=== PATIENT | female | born 1970 | race African-American/Black ===

== ENCOUNTER 2023-01-02 08:29 | Outpatient (AMB) | payer OTHER, SELFPAY ==
--- NOTE | 2023-01-02 08:37 | MHC.OFFVIS ---
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 Short he works in the [employer] office but changing to [employer]. She has a history of breast cancer around 2008 and underwent surgery/chemotherapy/radiation per documentation. Otherwise, no known cardiac issues. No history of any coronary disease, myocardial infarction or cardiomyopathy. She is extremely active with no limitations. Does not get chest pain or shortness of breath or any cardiac symptoms. No major comorbidities. [facility] Medical History (Updated 01/02/23 @ 08:50 by Saroj Wilkerson MD) Breast cancer Family History (Updated 01/02/23 @ 08:42 by Hyacinth Stapleton) Mother No problems noted. Father No problems noted. Social History (Updated 01/02/23 @ 08:42 by Hyacinth Stapleton) Alcohol intake: current Alcohol intake frequency: holidays/special occasions only Alcohol type: wine Review of Systems Const Denies chills, Denies daytime sleepiness, Denies fatigue, Denies fever(s), Denies frequent falls, Denies night sweats, Denies snoring, Denies weakness, Denies weight gain and Denies weight loss Eyes Denies loss of vision ENT Denies dizziness and Denies hearing loss Card Denies chest pain, Denies chest pain with activity, Denies syncope, Denies rapid heart rate, Denies edema, Denies claudication, Denies leg edema, Denies lightheadedness, Denies palpitations, Denies dyspnea, Denies dyspnea on exertion and Denies orthopnea Resp Denies cough, Denies excessive phlegm production, Denies dyspnea, Denies dyspnea on exertion, Denies snoring and Denies wheezing GI Denies abdominal pain, Denies hematochezia, Denies change in bowel habits, Denies change in stool character, Denies heartburn, Denies nausea and Denies vomiting Denies hematuria, Denies urinary frequency and Denies dysuria Musc Denies arthralgias, Denies muscle weakness, Denies numbness and Denies tingling Skin/Breast Denies nail changes and Denies rash Neuro Denies Abnormal speech present, Denies dizziness, Denies syncope, Denies frequent falls, Denies loss of vision, Denies memory loss, Denies numbness, Denies tingling and Denies weakness Psych Denies depression and Denies memory loss Endo Denies fatigue and Denies palpitations Aller/Immun Denies wheezing Physical Exam Vital Signs: Last Vital Signs Pulse 83 01/02/23 08:38 BP 110/74 01/02/23 08:38 BMI result Body Mass Index 30.5 Const General: comfortable and no acute distress Orientation/consciousness: patient oriented x3 HEENT Other: Unremarkable Head: Yes normal to inspection Neck Neck: Yes normal visual inspection Chest Chest palpation & inspection: normal inspection of the chest Resp Auscultation: clear to auscultation bilaterally Cardio Palpation: normal PMI Heart sounds: S1 normal heart sound present, S2 normal heart sound present, no gallops, no murmurs and no rubs GI Palpation (GI): Soft to palpation Back/Spine/Pelvis Other: unremarkable Skin General skin exam: no rashes or lesions noted Neuro General: patient oriented x3 Speech: No Abnormal speech present Extrem General: Yes normal to inspection Psych Mental Status: mental status grossly normal Assessment & Plan Assessment & Plan (1) Abnormal EKG: Code(s): R94.31 - Abnormal electrocardiogram [ECG] [EKG] Plan In the recent EKG, underlying rhythm is sinus at 72/Min. There is poor progression of R-waves along anterior leads. No previous EKGs for comparison. Findings discussed with patient and also showed her the EKG. She has no symptoms, but there is a history of radiation to the chest as well as chemotherapy. Will start with an echocardiogram and also get a stress test. These can be reviewed and we can make an addendum regarding proceeding with police work. Orders: Orders CA echo stress exercise Today I21.9 - Acute myocardial infarction, unspecified, R94.31 - Abnormal electrocardiogram [ECG] [EKG] CA echo transthoracic complete Today R94.31 - Abnormal electrocardiogram [ECG] [EKG] Coding Level of Care Code New Pt Level 3 (69759) Diagnoses Abnormal EKG R94.31
[2023-01-02 08:38] VITALS: BP 110/74; PULSE 83; BMI 30.5
== END 2023-01-02 08:56 | disposition home or self-care (01) ==
PROVIDERS: Visit Provider Internal Medicine
DX: R94.31 Abnormal electrocardiogram [ECG] [EKG] (principal)
CPT/HCPCS: 99203

== ENCOUNTER → 2023-01-02 08:29 | Outpatient (BNVA) | payer OTHER, SELFPAY | PROVIDERS: Visit Provider Internal Medicine ==

== ENCOUNTER → 2023-01-18 12:39 | Outpatient (REF) | payer OTHER, SELFPAY ==
--- NOTE | 2023-01-18 12:44 | CA_ITS ---
Transthoracic Echocardiogram Patient (Last, First, Middle): Jodee Isaacs, Gender: Female Date of : 1970 Age: 52 Procedure Date: 01/18/2023 Procedure Type: Transthoracic Echocardiogram Location: OP Height: 162.56 cm Weight: 76.66 kg BSA: 1.82 m2 Heart Rate: 74 bpm BP: 120 / 75 mmHg Criminal Intelligence Analyst: LIZETTE Peñaloza MD: Saroj Wilkerson MD Professor Of Spanish: Giovanni Mcmanus MD Symptoms: R94.31 - Abnormal electrocardiogram [ECG] [EKG] Study Quality: Fair ECG Rhythm: Sinus Conclusions: - Essentially normal study Findings Left Ventricle Normal left ventricular size, thickness, and systolic function. The visually estimated ejection fraction is between 55-60%. Spectral Doppler is indicative of a normal filling pattern. Right Ventricle Normal right ventricular cavity size and systolic function. Atria Both atria are normal in size. There is no evidence of interatrial shunt. Aortic Valve Normal aortic valve structure and function. There is no aortic valve stenosis. There is no aortic valve regurgitation. Mitral Valve Normal mitral valve structure and function. There is trace mitral valve regurgitation. There is no mitral valve stenosis. Pulmonic Valve The pulmonic valve is likely normal. Tricuspid Valve Normal tricuspid valve structure. There is trace tricuspid valve regurgitation. The right ventricular systolic pressure is normal. The right ventricular systolic pressure is 29 mmHg. Normal right atrial pressure. There is no evidence of pulmonary hypertension. Great Vessels All visible segments of the aorta are normal in size. The pulmonary artery was not well visualized. Venous The inferior vena cava is normal in size and collapses greater than 50% with inspiration. Pericardium/Pleural There is no evidence of pericardial effusion. Prior Study Comparison No prior study available for comparison. Measurements 2D Linear Measurements IVSd: 0.90 0.6-0.9/0.6-1.0 cm LVIDd: 5.00 3.9-5.3/4.2-5.9 cm LVIDd Index: 2.75 2.4-3.2/2.2-3.1 cm/m2 LVIDs: 4.00 2.0-3.6 cm LVPWd: 1.10 0.7-1.1 cm LA Diam: 3.60 2.7-3.8/3.0-4.0 cm LAIDs Index: 1.98 1.5-2.3 cm/m2 LV Mass: 226.72 67-162/88-224 g LV Mass Index: 124.57 43-95/49-115 g/m2 LVOT Diam: 2.20 3.0+(-)1.3 cm 2D Systolic Function EF 4C: 56.60 >55% EF 2C: 55.90 >55% EF BiP: 56.60 >55% Mitral Valve MV Pk E: 0.76 MV PK A: 0.72 MV Decel Time: 251.00 E/A: 1.10 E'Lateral: 7.94 E'Medial: 7.62 E/E' Med: 10.00 E/E' Lat: 9.60 PHT: 73.00 MVA PHT: 3.01 Decel [place]: 3.04 Aortic Valve AoV Pk Santos: 1.22 AoV Mn Santos: 0.92 AoV VTI: 0.27 AoV Pk Grad: 6.00 Aov Mn Grad: 4.00 JACKSON Cont.VTI: 2.80 LVOT LVOT Pk Santos: 0.93 LVOT Mn Santos: 0.67 LVOT VTI: 0.20 LVOT Pk Grad: 3.00 LVOT Mn Grad: 2.00 LVOT Diam: 2.20 LVOT Area: 3.80 Diastolic Function MV Pk E: 0.76 MV Pk A: 0.72 E/A: 1.10 E'Medial: 7.62 E/E' Med: 10.00 E' Laterial: 7.94 E/E' Lat: 9.60 Right Ventricle TAPSE (mm): 34.30 TVS' Santos: 14.10 Tricuspid Valve TR Pk Santso: 1.88 TR Pk Grad: 14.00 RA Press: 15.00 RVSP: 29.00 Great Vessels Aorta Sinus of Valsalva: 3.10 2.0-3.5 cm Ao Asc: 2.80 2.1-3.4 cm Pulmonary Valve PV Pk Santos: 1.03 Peak PV Grad: 4.00 Updated in Other Vendor System with Status of Final Giovanni Mcmanus MD electronically signed on 01/18/2023 3:28:10 PM with status of Final
== END ==
LOC: HO.CARD 12:39
PROVIDERS: Visit Provider Internal Medicine
DX: R94.31 Abnormal electrocardiogram [ECG] [EKG] (principal)
CPT/HCPCS: 93306

== ENCOUNTER → 2023-01-18 12:44 | Outpatient (BNV) | payer OTHER, SELFPAY | PROVIDERS: Visit Provider Internal Medicine Cardiovascular Disease | DX: R94.31 Abnormal electrocardiogram [ECG] [EKG] (principal) | CPT/HCPCS: 93306 ==

== ENCOUNTER → 2023-03-19 10:44 | Outpatient (REF) | payer OTHER, SELFPAY ==
--- NOTE | 2023-03-19 10:53 | CA_ITS ---
Acquisition Time: 2023-03-19 10:58:34 Total Exercise Time: 00:10:07 Test Indications: ABN EKG Medications: SEE H Protocol: CHUCK Max HR: 171 BPM 102% of Pred: 167 BPM Max BP: 164/068 mmHG Max Work Load: 11.9 METS Exercise stress test exercise 10 min 7 sec of Chuck protocol achieving 97% MPHR, without anginal symptoms, without arrhythmias, with normotensive response to exercise, without EKG changes. Echo images obtained by tech at rest and immediately post peak exercise. Definity contrast used. Test reviewed with Dr. Mcmanus Referred By: Saroj Wilkerson Overread By: Shanon Hobson
== END ==
LOC: HO.CARD 10:44
PROVIDERS: Visit Provider Internal Medicine
DX: I21.9 Acute myocardial infarction, unspecified (principal); R94.31 Abnormal electrocardiogram [ECG] [EKG]
CPT/HCPCS: 93350; Q9957

== ENCOUNTER → 2023-03-19 10:53 | Outpatient (BNV) | payer OTHER, SELFPAY | PROVIDERS: Visit Provider Nurse Practitioner | DX: R94.31 Abnormal electrocardiogram [ECG] [EKG] (principal) | CPT/HCPCS: 93016; 93018; 93350; 93352 ==